=== PATIENT | female | born 1980 | race Caucasian/White ===

== ENCOUNTER 2018-10-05 18:33 | Emergency (ER) | payer SELFPAY ==
[2018-10-05 18:34] VITALS: BP 104/55; PULSE 125; RESP 16; TEMP 37.1; O2SAT 95; BMI 22.7
[2018-10-05 18:56] LABS: Mucous, Urine 0 SEEN /hpf (<or=2+)
--- NOTE | 2018-10-05 19:10 | ED.DCSUM_ITS ---
History of Present Illness Chief Complaint: Complaint Informant: Patient Onset: - - Onset of symptoms Thursday Context: Sudden Onset Timing: Intermittent Quality: Dysuria and urgency Location: Current Severity: - - Mild suprapubic discomfort and back/flank pain on the right Maximum Severity: Moderate - Worse with urination Worsened by: Urination Relieved by: Nothing Associated Symptoms: Subjective fever and chills Narrative: Patient is a 38-year-old woman status post tubal ligation who presents with dysuria and urgency that started Thursday. She has not had a bladder infection for many years. She does report subjective fever with chills. She denies nausea or vomiting. She denies cardiac or respiratory symptoms. Last normal menstrual period 3 weeks ago Prior similar symptoms: Yes Recent Illness/Hospitalization: No - Past Medical History (1) No significant past medical history Status: Acute Past Medical History - Allergies and Home Meds Allergies/Adverse Reactions: Allergies No Known Allergies Allergy (Verified 10/05/18 18:34) Primary Care Physician: NOT,DEFINED [NON-STAFF] - Past Medical History: None Surgical History: - - Bilateral tubal ligation Lives: Spouse/ Significant Other Alcohol: None Drugs: None Review of Systems General: Reports: Chills, Fever, Subjective, Sweats. Denies: Malaise, Weight loss Eyes: Denies: Visual changes - bilaterally, Blurred Vision - bilaterally, Diplopia ENT: Denies: Rhinorrhea, Sore throat Cardiovascular: Denies: Chest pain Respiratory: Denies: Dyspnea, Cough Gastrointestinal: Reports: Abdominal pain. Denies: Vomiting, Diarrhea Genitourinary: Reports: Dysuria. Denies: Hematuria, Frequency - Patient does report urgency Musculoskeletal: Reports: Back pain. Denies: Myalgias, Arthralgias, Neck pain, Swelling, Extremity Pain Neurological: Denies: Headache Hematologic: Denies: Easy bruising Allergy: Denies: Uticaria Physical Exam Vital Signs/Narrative: Vital Signs Temp Pulse Resp BP Pulse Ox 10/05/18 18:34 98.7 F 125 H 16 104/55 L 95 Inital Vital Signs reviewed: Yes General: Well nourished, Well developed, No Acute Distress Head: Normocephalic, Atraumatic Eyes: Perrl, EOMI. Negative for: Pale conjunctiva, Scleral icterus, - ENT: Moist mucous membranes, No rhinorrhea Neck: Supple, Nontender, No lymphadenopathy, No JVD, - Cardiovascular: Regular rate, Regular rhythm, No murmurs Abdomen: Soft, Nondistended, Normal bowel sounds, Tender - There is tenderness in the suprapubic region Back: Nontender, Normal Inspection, CVA tenderness - Right Extremities: Nontender, No edema Skin: Normal color, No rash Neurological: Alert, Oriented x3, Cranial nerves II-XII grossly intact, Normal Strength, Normal Sensation Psychological: Normal affect, Normal Mood Diagnostic/Tx/Re-eval Laboratory Results 10/05/18 18:51 Urine Color Yellow Urine Clarity Cloudy Urine pH 6.0 Ur Specific [place] 1.015 Urine Protein 100 H Urine Glucose (UA) Normal Urine Ketones 15 H Urine Occult Blood 250 H Urine Nitrite Positive H Urine Bilirubin 1 H Urine Urobilinogen 4 H Ur Leukocyte Esterase 500 H Urine RBC 0-5 SEEN Urine WBC 10-25 SEEN Ur Squamous Epith Cells 0-5 SEEN Urine Bacteria 2+ Urine Mucus 0 SEEN Urine Test Negative - Medical Decision Making Cystitis. There is concern for subclinical pyelonephritis. We will obtain UA. Since patient is not febrile and not vomiting she can be treated as an outpatient. When I entered the room to examine her she was drinking a beverage and appears in no distress. Patient's urine is consistent with infection. Because there is CVA tenderness will treat for pyelonephritis. She received first dose of Synthroid Floxin in the department and prescription for 7-day course. She also was prescribed Pyridium for her discomfort. ED Disposition - Plan for ED Patient: Disposition: Home or Assisted Living Diagnosis: Acute pyelonephritis Instructions: ED Kidney Infec Female Prescriptions: Ciprofloxacin HCl 500 mg PO BID #14 tab Phenazopyridine HCl [Pyridium] 200 mg PO TID #10 tab Referrals: NOT,DEFINED [NON-STAFF] - Additional Instructions: Follow-up with the doctor on your insurance card in 3-5 days.
[2018-10-05 19:13] LABS: Color, Urine Yellow (Yellow); Glucose, Dipstick Normal (Normal); Ketone-Dipstick 15 mg/dl (Negative); Leukocyte Esterase-Dipstick 500 /ul (Negative); Nitrite-Dipstick Positive (Negative); Occult Blood-Urine 250 /ul (Negative); Protein-Dipstick 100 mg/dl (Negative); Specific Gravity, Urine 1.015 (1.002-1.030); Urine Clarity Cloudy (Clear); Urine Urobilinogen 4 mg/dl (Normal)
[2018-10-05 19:20] LABS: Internal QC Validated? YES +Cl - CLEAR BKGD; Pregnancy, Urine Negative Negative; Urine Bilirubin Dipstick 1 mg/dL (Negative)
[2018-10-05 19:26] LABS: Bacteria 2+ /hpf (None Seen); Red Blood Cells-Urine 0-5 SEEN /hpf (0-5); White Blood Cells 10-25 SEEN /hpf (0-5)
[2018-10-05 19:27] LABS: Squamous Epithelial Cells - UA 0-5 SEEN /hpf (5-10)
[2018-10-05] MEDS: Phenazopyridine 95 MG Tablet 190 MG PO (20:18)
[2018-10-05] MEDS: Ciprofloxacin 500 MG Tablet PO (20:18)
[2018-10-05 20:21] VITALS: RESP 15
== END 2018-10-05 20:23 | disposition home or self-care (01) ==
PROVIDERS: Emergency Provider Emergency Medicine
DX: N10 Acute pyelonephritis (principal)
CPT/HCPCS: 81001; 81025; 87086; 87088; 87186; 99283

== ENCOUNTER 2019-07-11 19:04 | Observation (INO) | payer BC, SELFPAY ==
[2019-07-11 19:06] VITALS: BP 128/59; PULSE 100; RESP 16; TEMP 36.6; O2SAT 100; BMI 23.1
[2019-07-11 19:36] VITALS: BP 125/69; PULSE 88; RESP 16; O2SAT 100
--- NOTE | 2019-07-11 19:39 | ED.DCSUM_ITS ---
- ER Visit Summary Date of Service: 07/11/19 Chief Complaint: Anemia History of Present Illness: The patient is a 38 F who presents for anemia. The patient had outpatient testing that showed her hemoglobin was 5. She has had vaginal bleeding for the past 5 months. She was prescribed an oral contraceptive pill by her doctor who is out of town but has not started it yet. She has not had any other interventions. Denies any other associated symptoms. Physical Examination: Afebrile and vital signs unremarkable. Exam unremarkable. Test Results: Labs pending. Emergency Department Course and Treatment: Will discuss with Dr. Camp who is on-call as the patient would like to get established with a local GREEN TIRE INSPECTOR. She recently moved to the area. I am awaiting laboratory testing. Patient will likely need transfusion. Hemoglobin 4.8. Otherwise vitals unremarkable. Ultrasound pending. Hospitalist was contacted for admission and Dr. Camp will see the patient as a [employer] consultant. Treatment Plan: As above Disposition: Admission Impression: Anemia Vaginal bleeding This note was generated with [employer] dictation software. It may contain incorrect words, spelling, and punctuation that were not noted in review of the chart prior to signing ED Disposition - Plan for ED Patient: Referrals: Care Physician,No Primary [Primary Care Provider] -
--- NOTE | 2019-07-11 19:48 | US_ITS ---
STUDY: ULTRASOUND OF THE FEMALE PELVIS - COMPLETE REASON FOR EXAM: Female, 38 years old. HEAVY BLEEDING LMP: TECHNIQUE: TECHNICAL QUALITY: Adequate. COMPARISON: None. FINDINGS: The uterus is anteverted and is in a midline position. The uterus measures 8.1 x 5.6 x 5.2 cm. There is a nabothian cyst suggested that may measure up to 1.4 cm. The endometrium measures 17.7 mm in thickness, and is heterogeneous. There is mixed echogenicity within the endometrium. There is vascularity. There is centrally located echogenic endometrium and low attenuating periphery possible fluid. There is no demonstrated myometrial mass. I.U.D. - The patient does not have an I.U.D. The right ovary is visualized. The right ovary measures 4.5 x 4.0 x 2.3 cm. There is a right ovarian cyst measuring 4.2 x 3.6 x 2.0 cm. There is no visualized right adnexal mass or complex lesion. There is normal arterial and normal venous vascularity. The left ovary is visualized. The left ovary measures 4.0 x 1.8 x 1.8 cm. cm. There is no left ovarian cyst or ovarian mass. There is no visualized left adnexal mass or complex lesion. There is normal arterial and normal venous vascularity. There is no fluid in the cul-de-sac. Polycystic ovary disease: No. US/Transvaginal Non- IMPRESSION: Thickened heterogeneous endometrium with mixed echogenicity. Recommend correlation with any history of recent . Retained products could potentially have this appearance. The differential includes endometrial hyperplasia possible atypia. Recommend INSTRUMENT MAINTENANCE SUPERVISOR consult. Anechoic benign-appearing avascular right ovarian cyst. Electronically Signed: Hailey Crandall MD at 21:23 EST Tel , Service support ,
[2019-07-11 20:01] LABS: Absolute Lymphocyte Count 1.73 X10^3/uL (0.83-4.51); Absolute Neutrophil Count 3.7 X10^3/uL (2.0-7.7); Basophil# 0.04 X10^3/uL; Basophil% 0.7 % (0-1); Eosinophils% 1.6 % (0-5); Hematocrit 18.6 % (37-47); Lymphocyte # 1.73 X10^3/ul (4.0); Lymphocyte % 28.5 % (19-41); Mean Corp Hgb Conc 25.8 g/dL (32-36); Mean Corpuscular Hgb 15.7 pg (27.0-32.0); Mean Corpuscular Volume 60.8 fL (81-99); Monocyte# 0.48 X10^3/uL; Monocyte% 7.9 % (0-10); NRBC Flagged by Analyzer 0 % (0-5); Neutrophil # 3.71 X10^3/uL (2.7-7.7); POSITIVE COUNT YES; POSITIVE MORPHOLOGY YES; Platelet Count 214 K/mm3 (150-450); RBC Distribution Width CV 22.3 % (11.6-14.6); RBC Distribution Width SD 46.5 fl (35.1-43.9); Red Blood Count 3.06 M/mm3 (4.2-5.4); White Blood Count 6.1 K/mm3 (4.4-11.0)
[2019-07-11 20:13] LABS: Bacteria 0 SEEN /hpf (None Seen); Mucous, Urine 0 SEEN /hpf (<or=2+); Squamous Epithelial Cells - UA 0 SEEN /hpf (5-10); White Blood Cells 0 SEEN /hpf (0-5)
[2019-07-11 20:28] LABS: Differential Indicated SCAN CRITERIA MET
[2019-07-11 20:29] LABS: Hemoglobin 4.8 g/dL (12.0-15.0)
[2019-07-11 20:37] LABS: Anion Gap 5 (5-15); BUN 17 mg/dL (7-18); Chloride 110 mmol/L (98-107); Creatinine, Serum 0.85 mg/dL (0.55-1.02); EST Glomerular Filtration Rate 79 mL/min (>60); Est Glom Filt Rate - Afr Amer 96 mL/min (>60); Estimated Creatinine Clearance 87.27 ml/min; Glucose 91 mg/dL (74-106); Potassium 3.7 mmol/L (3.5-5.1); Sodium Level 141 mmol/L (136-145)
[2019-07-11 20:39] LABS: Internal QC Validated? YES +Cl - CLEAR BKGD; Pregnancy, Serum, hCG Quali. NEGATIVE Negative
[2019-07-11 20:43] LABS: Color, Urine Yellow (Yellow); Glucose, Dipstick Normal (Normal); Ketone-Dipstick Negative (Negative); Leukocyte Esterase-Dipstick Negative /ul (Negative); Nitrite-Dipstick Negative (Negative); Occult Blood-Urine 250 /ul (Negative); Protein-Dipstick Negative (Negative); Red Blood Cells-Urine 50-100 SEEN /hpf (0-5); Urine Bilirubin Dipstick Negative (Negative); Urine Clarity Clear (Clear); Urine Urobilinogen Normal (Normal)
[2019-07-11 20:56] LABS: Anisocytosis 2+; Hypochromasia 3+; Microcytosis 3+; Ovalocyte RARE; Platelet Estimate ADEQUATE (ADEQ); Polychromasia RARE
[2019-07-11 21:08] VITALS: PULSE 96; RESP 14; RESP 15; O2SAT 96
--- NOTE | 2019-07-11 21:27 | HP.PCM_ITS ---
Problem List (1) Vaginal bleeding Status: Chronic (2) Anemia Status: Acute History of Present Illness Date of Admission: 07/11/19 Chief Complaint: anemia, vaginal bleeding The patient is a 38 year old female patient who presents the emergency room due to symptoms of dizziness and lightheadedness. She states she has had been having persistent vaginal bleeding over the past 5 months for which she was recently started on oral contraceptive pill that she has not started to take. The patient states her bleeding is relatively slow at this point but 2 to 3 days ago she passed some large clots. hCG is negative. The patient has relocated to the [facility] from [place] and is now seeking a new BOX TRUCK WASHER to manage this vaginal bleeding situation. Hemoglobin here in the emergency room was 4.8 hematocrits 18 staying in bed. She denies chest pain shortness of breath, nausea vomiting or diarrhea. TYPE DISK QUALITY CONTROL SUPERVISOR physician Dr. Camp was consulted by ER physician, hospitalist service was called to admit the patient for transfusion and TYPE DISK QUALITY CONTROL SUPERVISOR specialist will see the patient in consult. Past Medical History Past Medical History (Chronic Problems): Chronic Problems Vaginal bleeding (Chronic) Allergies orange Allergy (Verified 07/11/19 19:06) Angioedema Home Medications: Ambulatory Orders Medication Instructions Recorded NK 07/11/19 Surgical History: - - Bilateral tubal ligation Smoking Status: Former smoker - *Family History Maternal History Items: No pertinent history Review of Systems Constitutional: Reports: Fatigue. Denies: Chills, Fever, Weight Change HEENT: Denies: Head Aches, Sinus Congestion, Sinus Drainage Cardiovascular: Reports: Light Headedness. Denies: Chest Pain, Palpitations Respiratory: Denies: Cough, Shortness of breath at rest, Sputum production Gastrointestinal: Denies: Abdominal Pain, Nausea, Vomiting Genitourinary: Denies: Dysuria Musculoskeletal: Denies: Joint Pain, Joint Tenderness Skin: Denies: Rash, Wounds Neurological: Denies: Numbness, Tingling, Focal weakness Psychiatric: Denies: Anxiety, Depression, Homicidal Ideations, Suicidal Ideations Hematologic/ Lymphatic: Denies: Easy Bruising, Easy Bleeding VTE Information - Inpt Only VTE Present on Admission: No VTE Mechan Device Prophylaxis: SCD's VTE Pharm Prophylaxis ordered?: No Patient Problems: Active and Suspected Problems Anemia (Acute) - Physical Exam Vitals/I&O's: Vital Signs Temp Pulse Resp BP Pulse Ox 97.8 F 96 15 125/69 H 96 07/11/19 19:06 07/11/19 21:08 07/11/19 21:08 07/11/19 19:36 07/11/19 21:08 Oxygen Delivery Method Room Air Weight: 148 lb Body Mass Index (BMI) 23.1 General: Alert, Oriented x3, Cooperative, - - pale HEENT: Atraumatic, Normocephalic Neck: Supple, Negative Carotid Bruits Lungs: Clear to auscultation, Normal air movement Cardiovascular: Regular rate, Normal S1, Normal S2, No murmurs, Tachycardic Abdomen: Bowel Sounds Present, Soft, Non Tender Extremities: No edema Skin: No rashes Musculoskeletal: No Tenderness to Palpation of Joints or Extremities Neurological: Neuro grossly intact Psych/Mental Status: Normal Affect, Appropriate Laboratory Results 07/11/19 19:45: WBC 6.1, RBC 3.06 L, Hgb 4.8 L*, Hct 18.6 L, MCV 60.8 L, MCH 15.7 L, MCHC 25.8 L, RDW Std Deviation 46.5 H, RDW Coeff of Felipa 22.3 H, Plt Count 214, Immature Gran % (Auto) 0.300, Neut % (Auto) 61.0, Lymph % (Auto) 28.5, [place] % (Auto) 7.9, Eos % (Auto) 1.6, Baso % (Auto) 0.7, Absolute Neuts (auto) 3.7, Absolute Lymphs (auto) 1.73, Nucleated RBC % 0, Diff Path Review May foll, Platelet Estimate ADEQUATE, Polychromasia RARE, Hypochromasia 3+, Anisocytosis 2+, Microcytosis 3+, Ovalocytes RARE 07/11/19 19:45: Sodium 141, Potassium 3.7, Chloride 110 H, Carbon Dioxide 26.0, Anion Gap 5, BUN 17, Creatinine 0.85, Estim Creat Clear Calc 87.27, Est GFR (MDRD) Af Amer 96, Est GFR (MDRD) Non-Af 79, BUN/Creatinine Ratio 20.0, Glucose 91, Calcium 9.0 07/11/19 19:45: Serum , Qual NEGATIVE 07/11/19 19:45: Blood Type Pending, Antibody Screen Pending, Crossmatch See Detail 07/11/19 20:00: Urine Color Yellow, Urine Clarity Clear, Urine pH 7.0, Ur Specific [place] 1.010, Urine Protein Negative, Urine Glucose (UA) Normal, Urine Ketones Negative, Urine Occult Blood 250 H, Urine Nitrite Negative, Urine Bilirubin Negative, Urine Urobilinogen Normal, Ur Leukocyte Esterase Negative, Urine RBC 50-100 SEEN, Urine WBC 0 SEEN, Ur Squamous Epith Cells 0 SEEN, Urine Bacteria 0 SEEN, Urine Mucus 0 SEEN Current Medications Sodium Chloride () 500 mls @ 15 mls/hr IV PRN PRN PRN Reason: Blood Transfusion Assessment/Plan All Active Problems No significant past medical history (Acute) Anemia (Acute) Chronic Problems Vaginal bleeding (Chronic) Plan 1. Severe anemia secondary to chronic vaginal bleeding?consult Dr. Camp for TYPE DISK QUALITY CONTROL SUPERVISOR evaluation of bleeding, type cross and transfuse 2 units packed red blood cells repeat H&H 1 hour posttransfusion, hold NSAIDs if taking any. Obtain reticulocyte index?total iron binding capacity?serum iron, serum ferritin prior to transfusion 2. DVT prophylaxis?SCDs as a low molecular weight heparin would be contraindicated due to anemia and active bleeding Code Visit Inpatient E&M: 02330 Init Hosp L3
[2019-07-11 21:36] VITALS: BMI 25.7
[2019-07-11 21:43] VITALS: BP 128/74; PULSE 97; RESP 16; TEMP 37.1; O2SAT 97
[2019-07-11 21:57] VITALS: BMI 25.8
[2019-07-11 22:27] LABS: Iron 10 ug/dL (50-170); Iron Binding Capacity,Total 523 ug/dL (250-450); PERCENT IRON SATURATION 1.9 % (15.0-55.0)
[2019-07-11 22:50] VITALS: BP 118/69; PULSE 88; RESP 16; TEMP 36.8; O2SAT 100
[2019-07-11 23:05] VITALS: BP 119/59; PULSE 92; RESP 16; TEMP 36.8; O2SAT 100
[2019-07-12] VITALS (8 sets, daily range): BP systolic 108–116; BP diastolic 62–72; PULSE 70–87; RESP 16; TEMP 36.5–36.8; O2SAT 97–100
--- NOTE | 2019-07-12 03:58 | NURSING ---
notified harini in lab pt's blood is complete and hh will need drawn in 1 hr
[2019-07-12] MEDS: 0.9% Saline Lock 10 ML Syringe IV (05:15)
[2019-07-12 05:18] LABS: Absolute Lymphocyte Count 1.99 X10^3/uL (0.83-4.51); Absolute Neutrophil Count 3.3 X10^3/uL (2.0-7.7); Basophil# 0.05 X10^3/uL; Basophil% 0.8 % (0-1); Eosinophil# 0.16 X10^3/uL; Eosinophils% 2.6 % (0-5); Hematocrit 26.5 % (37-47); Hemoglobin 7.7 g/dL (12.0-15.0); Immature Platelet Fraction 4.6 % (1.0-7.9); Lymphocyte # 1.99 X10^3/ul (4.0); Lymphocyte % 32.1 % (19-41); Mean Corp Hgb Conc 29.1 g/dL (32-36); Mean Corpuscular Volume 68.8 fL (81-99); Monocyte# 0.67 X10^3/uL; Monocyte% 10.8 % (0-10); NRBC Flagged by Analyzer 0.3 % (0-5); Neutrophil # 3.29 X10^3/uL (2.7-7.7); Neutrophil % 53.2 % (47-70); POSITIVE MORPHOLOGY YES; Platelet Count 173 K/mm3 (150-450); RBC Distribution Width CV 28.7 % (11.6-14.6); RBC Distribution Width SD 67.1 fl (35.1-43.9); RET-HE 17.6 pg (30-35); Red Blood Count 3.85 M/mm3 (4.2-5.4); Reticulocyte Count 0.72 % (0.5-1.5); White Blood Count 6.2 K/mm3 (4.4-11.0)
[2019-07-12 05:32] LABS: Differential Indicated SCAN CRITERIA MET
[2019-07-12 05:43] LABS: Anion Gap 3 (5-15); BUN 16 mg/dL (7-18); BUN/Creat Ratio 24.8 RATIO (10-20); Calcium,Total 8.4 mg/dL (8.5-10.1); Chloride 109 mmol/L (98-107); Creatinine, Serum 0.64 mg/dL (0.55-1.02); EST Glomerular Filtration Rate 109 mL/min (>60); Est Glom Filt Rate - Afr Amer 132 mL/min (>60); Glucose 91 mg/dL (74-106); Potassium 3.7 mmol/L (3.5-5.1); Sodium Level 139 mmol/L (136-145)
[2019-07-12 05:53] LABS: Anisocytosis 2+; Hypochromasia 3+; Microcytosis 3+; Platelet Estimate ADEQUATE (ADEQ)
[2019-07-12 05:54] LABS: Ovalocyte 1+; Schistocytes RARE
--- NOTE | 2019-07-12 06:59 | NURSING ---
pt went through four ramirez pads since admission
--- NOTE | 2019-07-12 08:47 | PCM.CONS.B ---
- Consult Date of Consult: 07/12/19 - Reason for Consult Gynecology Consultation Reason for Consultation: Heavy Vaginal Bleeding, Anemia HPI: This is a 38-year-old G3, P3 who presents to the emergency room with severe anemia and heavy vaginal bleeding. She has been seeing her SURVEY PARTY CHIEF in [place] who has attempted to start her on OCPs for heavy vaginal bleeding. She admits that she has not started these pills yet. In the emergency room her hemoglobin was 4.8 and she was admitted to the medicine service for transfusion overnight. Her hemoglobin is now in the mid sevens. She denies any dizziness or lightheadedness after her 2 units of packed red blood cells but she indicates that she was dizzy at the time she presented to the emergency room. She indicates that this bleeding has been occurring on and off for several years. More recently she has bled almost every day sometimes very heavy. She is on some iron. Medications: Iron supplements. She has a prescription for OCPs but has not started this prescription yet. Social: Patient is not currently a smoker but she is a former smoker. She is . Physical exam: In general this is a 38-year-old patient in no apparent distress. Physical exam per the medicine service was essentially normal. She indicates minimal vaginal bleeding at present. She is uncertain where she is in her cycle and indicates that she could start heavier bleeding at any time. Radiology: Ultrasound is essentially normal with a thickened endometrial lining. Suspicious for an endometrial polyp. No fibroids are present. Ovaries are slightly enlarged but otherwise are normal. Impression/Plan: Menorrhagia and chronic anemia. Uncertain etiology but suspicious for endometrial polyp. Recommended to the patient that she continue her iron supplementation and start OCPs today. If her bleeding becomes heavier she is to call our office and we will institute an Aygestin taper to prevent her from needing to return to the emergency room. Separately, we discussed treatment and plan to proceed with a D&C within the next 1 to 2 weeks. We discussed the RBA's of this procedure including the possibly of bleeding, infection, and injury to surrounding structures such as bowel and bladder and all questions were answered. Our office will contact her regarding scheduling of the surgery. From our standpoint the patient should be able to be discharged soon. Thank you for your kind consultation of this pleasant patient.
--- NOTE | 2019-07-12 08:49 | PCM.PN.HOSP ---
Patient Problems: Active and Suspected Problems Anemia (Acute) Reason for Visit: follow up severe anemia Vitals/I&O's: Vital Signs Temp Pulse Resp BP Pulse Ox 98 F 70 16 116/72 98 07/12/19 08:08 07/12/19 08:08 07/12/19 08:08 07/12/19 08:08 07/12/19 08:08 Oxygen Delivery Method Room Air Weight: 74.6 kg Body Mass Index (BMI) 25.7 Intake and Output for Last 24 Hours 07/10/19 07/11/19 07/12/19 23:59 23:59 23:59 Intake Total 0 / 0 1600 / 1600 Output Total 1500 / 1500 Balance 0 / 0 100 / 100 Laboratory Results 07/11/19 19:45: WBC 6.1, RBC 3.06 L, Hgb 4.8 L*, Hct 18.6 L, MCV 60.8 L, MCH 15.7 L, MCHC 25.8 L, RDW Std Deviation 46.5 H, RDW Coeff of Felipa 22.3 H, Plt Count 214, Immature Gran % (Auto) 0.300, Neut % (Auto) 61.0, Lymph % (Auto) 28.5, [place] % (Auto) 7.9, Eos % (Auto) 1.6, Baso % (Auto) 0.7, Absolute Neuts (auto) 3.7, Absolute Lymphs (auto) 1.73, Nucleated RBC % 0, Diff Path Review May foll, Platelet Estimate ADEQUATE, Polychromasia RARE, Hypochromasia 3+, Anisocytosis 2+, Microcytosis 3+, Ovalocytes RARE 07/11/19 19:45: Sodium 141, Potassium 3.7, Chloride 110 H, Carbon Dioxide 26.0, Anion Gap 5, BUN 17, Creatinine 0.85, Estim Creat Clear Calc 87.27, Est GFR (MDRD) Af Amer 96, Est GFR (MDRD) Non-Af 79, BUN/Creatinine Ratio 20.0, Glucose 91, Calcium 9.0 07/11/19 19:45: Serum , Qual NEGATIVE 07/11/19 19:45: Blood Type A POSITIVE, Antibody Screen NEGATIVE, Crossmatch See Detail 07/11/19 20:00: Urine Color Yellow, Urine Clarity Clear, Urine pH 7.0, Ur Specific [place] 1.010, Urine Protein Negative, Urine Glucose (UA) Normal, Urine Ketones Negative, Urine Occult Blood 250 H, Urine Nitrite Negative, Urine Bilirubin Negative, Urine Urobilinogen Normal, Ur Leukocyte Esterase Negative, Urine RBC 50-100 SEEN, Urine WBC 0 SEEN, Ur Squamous Epith Cells 0 SEEN, Urine Bacteria 0 SEEN, Urine Mucus 0 SEEN 07/11/19 21:50: Iron 10 L, TIBC 523 H, Iron Saturation 1.9 L 07/12/19 05:06: WBC 6.2, RBC 3.85 L, Hgb 7.7 L, Hct 26.5 L, MCV 68.8 L D, MCH 20.0 L, MCHC 29.1 L, RDW Std Deviation 67.1 H, RDW Coeff of Felipa 28.7 H, Plt Count 173, Immature Gran % (Auto) 0.500, Neut % (Auto) 53.2, Lymph % (Auto) 32.1, [place] % (Auto) 10.8 H, Eos % (Auto) 2.6, Baso % (Auto) 0.8, Absolute Neuts (auto) 3.3, Absolute Lymphs (auto) 1.99, Nucleated RBC % 0.3, Platelet Estimate ADEQUATE, Immature Plt Fraction 4.6, Hypochromasia 3+, Anisocytosis 2+, Microcytosis 3+, Ovalocytes 1+, Schistocytes RARE, Retic Count 0.72, Immature Retic Fraction 7.10, Retic Hgb Equivalent 17.6 L 07/12/19 05:06: Sodium 139, Potassium 3.7, Chloride 109 H, Carbon Dioxide 27.0, Anion Gap 3 L, BUN 16, Creatinine 0.64, Estim Creat Clear Calc 115.90, Est GFR (MDRD) Af Amer 132, Est GFR (MDRD) Non-Af 109, BUN/Creatinine Ratio 24.8 H, Glucose 91, Calcium 8.4 L 07/12/19 : Hgb Cancelled, Hct Cancelled, Immature Plt Fraction Cancelled, Retic Count Cancelled, Immature Retic Fraction Cancelled, Retic Hgb Equivalent Cancelled Current Medications Sodium Chloride () 500 mls @ 15 mls/hr IV PRN PRN PRN Reason: Blood Transfusion Sodium Chloride () 500 mls @ 15 mls/hr IV PRN PRN PRN Reason: Blood Transfusion Sodium Chloride () 10 - 40 ml IV UD PRN PRN Reason: SALINE FLUSH Last Admin: 07/12/19 05:15 Dose: 30 ml Documented by: STROKE Vital Signs/Narrative: Vital Signs Temp Pulse Resp BP Pulse Ox 07/12/19 08:08 98 F 70 16 116/72 98 07/12/19 07:35 97 07/12/19 05:12 97.8 F 71 16 109/69 99 Medical Necessity - Tobacco Use Smoking Status: Former smoker Tobacco Use: Cigarettes Assessment/Plan All Active Problems No significant past medical history (Acute) Anemia (Acute)
--- NOTE | 2019-07-12 09:07 | DCINST_ITS ---
- Discharge Diagnoses Current Active Problems: Current Active and Chronic Problems Vaginal bleeding (Chronic) Anemia (Acute) You will use the following diet at home:: Regular Your food should be the consistency of: Regular Discharge Activity: Return to Normal Activity Allergies/Adverse Reactions: Allergies orange Allergy (Verified 07/11/19 19:06) Angioedema Medications to take at Discharge Docusate Sodium [Colace] 100 mg PO DAILY #60 cap 07/12/19 Iron Poly/Vit C [Niferex-150] 150 mg PO DAILYCM #60 cap 07/12/19 The following prescriptions were given: Docusate Sodium [Colace] 100 mg PO DAILY #60 cap Transmission Status: Pending to [id number] Iron Poly/Vit C [Niferex-150] 150 mg PO DAILYCM #60 cap Transmission Status: Pending to [id number] Primary Care Physician: Care Physician,No Primary [Primary Care Provider] - Please follow up with your Primary Care Physician in: in 1 week Test Results: Test results from this visit will be discussed in further detail at your follow- up appointment, if applicable. Please Follow Up With: Shon Camp MD When: as scheduled Proposed Discharge Date: 07/12/19
--- NOTE | 2019-07-12 09:17 | DS.PCM_ITS ---
Discharge Date and Diagnosis - Problem List Patient Problems: Active and Suspected Problems Anemia (Acute) Date of Admission: 07/11/19 Date of Discharge: 07/12/19 - Primary Discharge Diagnosis Active and Suspected Problems Anemia (Acute) - Secondary Discharge Diagnosis Chronic Problems Vaginal bleeding (Chronic) Hospital Course and Treatment Summary of Care Provided: The patient is a 38 year old F history of menometrorrhagia lightheadedness. Patient was found to have hemoglobin of 4.8. Admitted to regular nursing floor transfused with PRBC. Hemoglobin came up to 7.7 following the transfusion. Patient was also seen in consultation by [facility] [employer] REPRESENTATIVE Dr. Camp plan is for patient to undergo outpatient D&C on 07/18/2019. Prescription was also written for Niferex on discharge. Patient Problems: Active and Suspected Problems Anemia (Acute) Objective: GENERAL: cooperative HEENT: Atraumatic; EYES; Anicteric, Normal Conjunctiva NECK; supple, normal thyroid, RESPIRATORY: Diminished to auscultation CARDIOVASCULAR: Regular S1 S2, SKIN: No Rash PSYCH; Flat affect - Physical Exam Vitals/I&O's: Vital Signs Temp Pulse Resp BP Pulse Ox 98 F 70 16 116/72 98 07/12/19 08:08 07/12/19 08:08 07/12/19 08:08 07/12/19 08:08 07/12/19 08:08 Oxygen Delivery Method Room Air Weight: 74.6 kg Body Mass Index (BMI) 25.7 Intake and Output for Last 24 Hours 07/10/19 07/11/19 07/12/19 23:59 23:59 23:59 Intake Total 0 / 0 1600 / 1600 Output Total 1500 / 1500 Balance 0 / 0 100 / 100 Laboratory Results 07/11/19 19:45: WBC 6.1, RBC 3.06 L, Hgb 4.8 L*, Hct 18.6 L, MCV 60.8 L, MCH 15.7 L, MCHC 25.8 L, RDW Std Deviation 46.5 H, RDW Coeff of Felipa 22.3 H, Plt Count 214, Immature Gran % (Auto) 0.300, Neut % (Auto) 61.0, Lymph % (Auto) 28.5, [place] % (Auto) 7.9, Eos % (Auto) 1.6, Baso % (Auto) 0.7, Absolute Neuts (auto) 3.7, Absolute Lymphs (auto) 1.73, Nucleated RBC % 0, Diff Path Review May , Platelet Estimate ADEQUATE, Polychromasia RARE, Hypochromasia 3+, Anisocytosis 2+, Microcytosis 3+, Ovalocytes RARE 07/11/19 19:45: Sodium 141, Potassium 3.7, Chloride 110 H, Carbon Dioxide 26.0, Anion Gap 5, BUN 17, Creatinine 0.85, Estim Creat Clear Calc 87.27, Est GFR (MDRD) Af Amer 96, Est GFR (MDRD) Non-Af 79, BUN/Creatinine Ratio 20.0, Glucose 91, Calcium 9.0 07/11/19 19:45: Serum , Qual NEGATIVE 07/11/19 19:45: Blood Type A POSITIVE, Antibody Screen NEGATIVE, Crossmatch See Detail 07/11/19 20:00: Urine Color Yellow, Urine Clarity Clear, Urine pH 7.0, Ur S pecific [place] 1.010, Urine Protein Negative, Urine Glucose (UA) Normal, Urine Ketones Negative, Urine Occult Blood 250 H, Urine Nitrite Negative, Urine Bilirubin Negative, Urine Urobilinogen Normal, Ur Leukocyte Esterase Negative, Urine RBC 50-100 SEEN, Urine WBC 0 SEEN, Ur Squamous Epith Cells 0 SEEN, Urine Bacteria 0 SEEN, Urine Mucus 0 SEEN 07/11/19 21:50: Iron 10 L, TIBC 523 H, Iron Saturation 1.9 L 07/12/19 05:06: WBC 6.2, RBC 3.85 L, Hgb 7.7 L, Hct 26.5 L, MCV 68.8 L D, MCH 20.0 L, MCHC 29.1 L, RDW Std Deviation 67.1 H, RDW Coeff of Felipa 28.7 H, Plt Count 173, Immature Gran % (Auto) 0.500, Neut % (Auto) 53.2, Lymph % (Auto) 32.1, [place] % (Auto) 10.8 H, Eos % (Auto) 2.6, Baso % (Auto) 0.8, Absolute Neuts (auto) 3.3, Absolute Lymphs (auto) 1.99, Nucleated RBC % 0.3, Platelet Estimate ADEQUATE, Immature Plt Fraction 4.6, Hypochromasia 3+, Anisocytosis 2+, Micr ocytosis 3+, Ovalocytes 1+, Schistocytes RARE, Retic Count 0.72, Immature Retic Fraction 7.10, Retic Hgb Equivalent 17.6 L 07/12/19 05:06: Sodium 139, Potassium 3.7, Chloride 109 H, Carbon Dioxide 27.0, Anion Gap 3 L, BUN 16, Creatinine 0.64, Estim Creat Clear Calc 115.90, Est GFR (MDRD) Af Amer 132, Est GFR (MDRD) Non-Af 109, BUN/Creatinine Ratio 24.8 H, Glucose 91, Calcium 8.4 L 07/12/19 : Hgb Cancelled, Hct Cancelled, Immature Plt Fraction Cancelled, Retic Count Cancelled, Immature Retic Fraction Cancelled, Retic Hgb Equivalent Cancelled Current Medications Sodium Chloride () 500 mls @ 15 mls/hr IV PRN PRN PRN Reason: Blood Transfusion Sodium Chloride () 500 mls @ 15 mls/hr IV PRN PRN PRN Reason: Blood Transfusion Sodium Chloride () 10 - 40 ml IV UD PRN PRN Reason: SALINE FLUSH Last Admin: 07/12/19 05:15 Dose: 30 ml Documented by: Discharge Diet: No Restrictions Discharge Activity: Return to Normal Activity Home Medications: Medications to take at Discharge Docusate Sodium [Colace] 100 mg PO DAILY #60 cap 07/12/19 Iron Poly/Vit C [Niferex-150] 150 mg PO DAILYCM #60 cap 07/12/19 Following Prescrptions Were Given to Patient: Docusate Sodium [Colace] 100 mg PO DAILY #60 cap Transmission Status: Pending to [id number] Iron Poly/Vit C [Niferex-150] 150 mg PO DAILYCM #60 cap Transmission Status: Pending to [id number] Primary Care Physician: Care Physician,No Primary [Primary Care Provider] - Please follow up with your Primary Care Physician in: in 1 week Please Follow Up With: Shon Camp MD When: as scheduled Disposition: Home Minutes spent on discharge:: 35 Patient Condition:: Good Medical Necessity - Tobacco Use Smoking Status: Former smoker Tobacco Use: Cigarettes Meaningful Use Info Meaningful Use Diagnoses (Choose all that apply): None applicable Code Visit Inpatient E&M: 32177 Disch Hosp
--- NOTE | 2019-07-12 10:02 | CASEMGMT ---
RN DEX attempted to complete Face to Face assessment. Patient has discharged prior to assessment. Chart reviewed, no needs identified. Floor RN provided patient with list of PCPs to get established. Patient to follow-up with PLODDING OPERATOR as outpatient.
[2019-07-12 15:33] LABS: Pathologist Review Reviewed
== END 2019-07-12 10:00 | disposition home or self-care (01) ==
LOC: ED 19:29 → MS3 22:45
PROVIDERS: Admitting Provider Family Medicine; Emergency Provider Emergency Medicine; Visit Provider Internal Medicine
DX: D64.9 Anemia, unspecified (principal); N92.1 Excessive and frequent menstruation with irregular cycle; Z87.891 Personal history of nicotine dependence
CPT/HCPCS: 36415; 36430; 76830; 80048; 81001; 83540; 83550; 84703; 85025; 85045; 86850; 86900; 86901; 86920; 86922; 99218; 99284; P9016; A4216; G0378

== ENCOUNTER 2019-07-18 11:08 | Day surgery (SDC) | payer BC, SELFPAY ==
[2019-07-15 11:34] LABS: Internal QC Validated? YES +Cl - CLEAR BKGD; Pregnancy, Serum, hCG Quali. NEGATIVE Negative
[2019-07-15 11:44] LABS: Hematocrit 27.5 % (37-47); Hemoglobin 7.8 g/dL (12.0-15.0); Mean Corp Hgb Conc 28.4 g/dL (32-36); Mean Corpuscular Hgb 19.5 pg (27.0-32.0); Mean Corpuscular Volume 68.9 fL (81-99); POSITIVE MORPHOLOGY YES; Platelet Count 198 K/mm3 (150-450); RBC Distribution Width CV 29.2 % (11.6-14.6); RBC Distribution Width SD 67.8 fl (35.1-43.9); Red Blood Count 3.99 M/mm3 (4.2-5.4); White Blood Count 5.6 K/mm3 (4.4-11.0)
[2019-07-15 11:45] LABS: Scan Indicated on CBC? Y/N YES- FLAGS NOTED
[2019-07-15 11:48] LABS: Prothrombin Time (Protime)PT. 13.4 SECONDS (11.7-14.9)
[2019-07-15 11:49] LABS: Partial Thromboplast Time 26.6 Seconds (24.1-36.2)
--- NOTE | 2019-07-17 16:23 | PCM.HP.BLA ---
History and Physical Date of Admission: 07/18/19 Surgical History and Physical Asad Pat, a 38 year old female 3 0 0 0 3, presents for D and C and hysteroscopy on July 18, 2019 at 1:00. -- Menorrhagia, Blood Loss Anemia -- Excessive bleeding since 11/2018 which continues with light flow. Denies other concerns at this time. U/S shows possible EM polyp. MEDICATIONS HISTORY: ALLERGIES: No Known Allergies Infections - Chicken pox Illnesses - no serious past illnesses Accidents - None Hospitalizations - see surgery Review of Systems: GENERAL - fatigue SKIN - Denies skin changes EYES - Denies visual changes EARS - Denies difficulty hearing NOSE - Denies nasal congestion or bleeding MOUTH - Denies sore throat or difficulty swallowing NECK - Denies pain or swelling RESPIRATORY - Denies shortness of breath or wheezing CARDIOVASCULAR - Denies palpitations or chest pain GASTROINTESTINAL - Denies nausea, vomiting, diarrhea, constipation GENITOURINARY - Denies dysuria, frequency of urination, incontinence of urine MUSCULOSKELETAL - Denies joint or muscle pain NEUROLOGICAL - Denies localized numbness or weakness PSYCHIATRIC - Denies depression or anxiety ENDOCRINE - Denies heat or cold intolerance, weight loss or gain HEMATO-IMMUNOLOGIC - Denies excesive bleeding with cuts SOCIAL HISTORY: Alcohol Use - None Smoking - Never Diet - no special diet Lifestyle - moderate stress lifestyle and Exercise - active work Seat Belt Use - always Employer - [employer] Job Description - [place] Illicit Drug Use - None Sexual Activity - Spouse-Sig Other Name - Vincent Pat Spouse-Sig Other 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 Tubal, 2003 2. cholecystectomy, 1999 PHYSICAL EXAM BP- 126/70 Sitting, Right arm, regular cuff Weight- 167.91936 lbs Height- 67 inch BMI:26.21 CONSTITUTIONAL - NAD, well nourished, and well developed SKIN - No rash, lesions, or ulcers HEENT - Normocephalic, PERRLA, EOMI NECK - No nodes, no nuchal rigidity and thyroid normal size and texture LYMPH NODES - Palpation of lymph nodes in neck and groins within normal limits LUNGS - CTA x2 without wheezes, crackles or rales CARDIAC - Regular rate and rhythm without rubs, murmurs, or gallops ABDOMEN - Without hepatosplenomegaly, distention, masses, rebound, or guarding; normal bowel sounds; no hernias EXTREMITIES - No edema or calf tenderness NEUROLOGICAL - Cranial nerves II-XII grossly intact PSYCHIATRIC - A and O to time, place, person, mood and affect DETAILED PELVIC EXAM External Genital Vagina - non-tender without lesions Urethra/Urethral Meatus - non-tender Bladder - non-tender Vagina - vaginal kowalski are pink and moist without loss of rugae and no evidence of atropy Cervix - without cervical motion tenderness and has normal size and features without evident lesions Uterus - multiparous size 6 cm & wt 75-125 g Adnexa - clear without massess or tenderness ASSESSMENT/PLAN BY DIAGNOSIS: 1. Menorrhagia, Blood Loss Anemia Plan D and C and H/S. Received 2 units PRBC about a week ago. Discussed RBAs and all questions answered.
[2019-07-18] VITALS (7 sets, daily range): BP systolic 113–122; BP diastolic 56–78; PULSE 57–73; RESP 15–18; TEMP 36.5–36.9; O2SAT 96–100; BMI 25.8
[2019-07-18] MEDS: Lactated Ringers 1,000 ML 100 ML IV (07:00)
--- NOTE | 2019-07-18 12:33 | OP.PCM_ITS ---
Report of Operation Date of Procedure: 07/18/19 Pre-Operative Diagnosis: Menorrhagia, Blood Loss Anemia Post-Operative Diagnosis: Menorrhagia, Blood Loss Anemia, Endometrial Polyps Surgery/Procedure Performed:: Diagnostic Hysteroscopy, Dilation and Curettage Description of Surgical Findings:: 10 cm endometrial cavity with multiple 2-3 cm endometrial polyps removed with copious endometrial curettings. Cervix protrudes to within 3 cm of the in troitus which would make laparoscopic-assisted vaginal hysterectomy possibly feasible if this were necessary. Type of Anesthesia:: MAC Anesthesiologist: Leo Turner Specimen's removed: Endometrial curettings Estimated Blood Loss (mL): Minimal Fluids Replaced: Crystalloid Description of Procedure: Surgeon: Shon Camp MD, FACOG Indications: This is a 38 year old patient who has the above diagnosis. The patient has been counseled regarding the risk and indications of this procedure including the possibility of bleeding, infection, and injury to surrounding structures such as bowel bladder. All questions were answered and we consider the patient well-informed. Procedure: The patient was taken to the operating room where after induction of anesthesia, she was placed in the dorsolithotomy position and prepped and draped in the usual sterile fashion. The bladder was drained of approximately 100 cc of clear yellow urine with a catheter. Anterior cervix was grasped with the tenaculum and dilated to about 4-5 mm. A 3 mm hysteroscope was placed in the uterus of the above findings were noted. Cervix was dilated to about 7-8 mm and uterus was gently curetted removing all contents. Hysteroscope was reinserted and all material was noted to be removed. In the course of the procedure approximately 100 cc of saline distending media was used and virtually all of this was recovered. Patient tolerated procedure well was taken to recovery room in satisfactory condition sponge instrument and needle counts were all reportedly correct. Estimated blood loss for the case was minimal. Specimens to pathology was endometrial curettings Complications: None Grafts/Implants Used: None - Complications None - Admit VTE Documentation VTE Present on Admission: Yes VTE Mechan Device Prophylaxis: SCD's
--- NOTE | 2019-07-18 12:37 | PCM.DC.D&C ---
Discharge Diet: No Restrictions Discharge Activity: Return to Normal Activity, May Shower, May Take a Tub Bath May resume sexual activity in: 2 weeks Call your doctor if you observe: Fever of 101 or Higher, Inability to urinate, Inability to have a bowel movement, Using more than one pad per hour Allergies/Adverse Reactions: Allergies orange Allergy (Verified 07/18/19 11:31) Angioedema Medications to take at Discharge Iron Poly/Vit C [Niferex-150] 150 mg PO DAILYCM #60 cap 07/12/19 Levonorgestrel-Ethin Estradiol [Levonor-Eth Estrad 0.15-0.03] 1 ea PO DAILY 07/15/19 Oxycodone [Oxyir] 5 mg PO Q6H PRN PRN 3 Days #5 tablet 07/18/19 The following prescriptions were given: Oxycodone [Oxyir] 5 mg PO Q6H PRN PRN 3 Days #5 tablet PRN Reason: Pain Score 6-10/10 Transmission Status: Received by [facility]/pharmacy #[id number] Primary Care Physician: Care Physician,No Primary [Primary Care Provider] - Test Results: Test results from this visit will be discussed in further detail at your follow-up appointment, if applicable. Please Follow Up With: Shon Camp MD When: 2 to 3 weeks
--- NOTE | 2019-07-18 12:40 | EMB_PTH ---
PATIENT: CRISTINA SHAH [place] [facility] [id number] AGE/SX: 38/F ROOM: RE07/18/[address]: Dr. Shon Camp MD : 1980 BED: DIS: 07/18/2019 SPEC #: [id number] RECD: 07/18/19 13:21 STATUS: ROGELIO LALO #: [id number] KRISTIN: 07/18/19 12:[address]: Shon Camp DEPT: SURGICAL PATHOLOGY RECD BY: Dashawn Romero ENTERED: 07/18/19 13:42 SP TYPE: ENDOM BX/C ERLINDA DR: No Primary Care Phys Tissues: Endometrium, NOS Procedures: Surgery Specimen Level IV HEADER OPERATION: Hysteroscopy, D & C PRE-OP DIAGNOSIS: Menorrhagia, blood loss anemia TISSUE SUBMITTED: Endometrial curettings MICROSCOPIC DIAGNOSIS Endometrium, curettings: Polypoid fragments of secretory endometrium with benign stromal hyperplasia and stromal and glandular breakdown. See comment. AM:nathen 07/19/19 COMMENT The benign stromal hyperplasia may be secondary to exogenous hormonal therapy. Clinical correlation is suggested. MICROSCOPIC DESCRIPTION Slides are reviewed. GROSS DESCRIPTION Received in fixative is one container labeled with the patient's name and designated endometrial curettings. The specimen consists of multiple fragments of hemorrhagic soft tissue mixed with cox polypoid tissue that in aggregate measure 7.5 x 3 x 1 cm. The entire specimen is submitted in nine cassettes. / SJ:nathen 07/18/19 TC:5 CPT: 11334
[2019-07-18] MEDS: Cefazolin 1 GM/50 ML BAG IV (12:48)
[2019-07-18] MEDS: oxyCODONE 5 MG Tablet PO (13:44)
== END 2019-07-18 14:21 | disposition home or self-care (01) ==
LOC: SDC 11:09 → AC 11:14
PROVIDERS: Referring Provider Obstetrics & Gynecology; Visit Provider Obstetrics & Gynecology
PROC: 0UDB8ZZ Extraction of Endometrium, Via Natural or Artificial Opening Endoscopic (ICD-10-PCS; CPT 58558; principal; 2019-07-18 12:30)
DX: N85.01 Benign endometrial hyperplasia (principal); D50.0 Iron deficiency anemia secondary to blood loss (chronic); Z87.891 Personal history of nicotine dependence
CPT/HCPCS: 58558; 36415; 84703; 85027; 85610; 85730; 86850; 86900; 86901; 88305; J7120

== ENCOUNTER → 2020-09-05 | Outpatient (CLI) | payer BC, SELFPAY ==
[2019-07-18 11:32] VITALS: BMI 25.8
--- NOTE | 2020-09-05 | EMB_PTH ---
PATIENT: CRISTINA SHAH LOC: [facility] U#:[id number] AGE/SX: 39/F ROOM: RE09/05/[address]: Dr. Shon Camp MD : 1980 BED: DIS: 09/05/2020 SPEC #: [id number] RECD: 09/05/20 15:02 STATUS: ROGELIO REQ #: [id number] KRISTIN: 09/05/20 00:[address]: Shon Camp DEPT: SURGICAL PATHOLOGY RECD BY: Meek Pearl ENTERED: 09/06/20 07:30 SP TYPE: ENDOM BX/C ERLINDA DR: No Primary Care Phys Tissues: Endometrium, NOS Procedures: Surgery Specimen Level IV HEADER OPERATION: Endometrial biopsy PRE-OP DIAGNOSIS: Irregular menses TISSUE SUBMITTED: Endometrial biopsy MICROSCOPIC DIAGNOSIS Endometrial biopsy: Disordered proliferative endometrium. SJ:nathen 09/07/2020 MICROSCOPIC DESCRIPTION Slides are reviewed. GROSS DESCRIPTION Received in fixative is one container labeled with the patient's name and designated EM biopsy. The specimen consists of multiple fragments of cox hemorrhagic soft tissue that in aggregate measure 3 x 2.5 x 0.3 cm. The specimen is totally submitted in one cassette. / SJ:nathen 09/06/20 TC:5 CPT: 52909
[2020-09-12 12:53] LABS: HPV Reflexed? NOT INDICATED
== END | disposition home or self-care (01) ==
LOC: LABSPEC 13:08
PROVIDERS: Visit Provider Obstetrics & Gynecology
DX: N92.6 Irregular menstruation, unspecified (principal); Z12.4 Encounter for screening for malignant neoplasm of cervix
CPT/HCPCS: 88175; 88305; G0145

== ENCOUNTER → 2020-09-11 13:06 | Outpatient (CLI) | payer BC, SELFPAY ==
[2019-07-18 11:32] VITALS: BMI 25.8
[2020-09-11 13:46] LABS: Hematocrit 27.6 % (37-47)
== END ==
PROVIDERS: Visit Provider Obstetrics & Gynecology
DX: D50.0 Iron deficiency anemia secondary to blood loss (chronic) (principal)
CPT/HCPCS: 85014; 85018

== ENCOUNTER 2020-09-21 08:08 | Day surgery (SDC) | payer BC, SELFPAY ==
[2019-07-18 11:32] VITALS: BMI 25.8
[2020-09-17 15:14] LABS: Hematocrit 28.7 % (37-47); Hemoglobin 8.1 g/dL (12.0-15.0); Mean Corp Hgb Conc 28.2 g/dL (32-36); Mean Corpuscular Hgb 21.5 pg (27.0-32.0); Mean Corpuscular Volume 76.1 fL (81-99); Mean Platelet Vol. 10.8 fl (6.2-12.0); Platelet Count 213 K/mm3 (150-450); RBC Distribution Width CV 18.7 % (11.6-14.6); RBC Distribution Width SD 51.2 fl (35.1-43.9); Red Blood Count 3.77 M/mm3 (4.2-5.4); White Blood Count 6.8 K/mm3 (4.4-11.0)
[2020-09-17 15:24] LABS: Prothrombin Time (Protime)PT. 12.8 SECONDS (11.7-14.9)
[2020-09-17 15:25] LABS: Partial Thromboplast Time 24.5 Seconds (24.1-36.2)
[2020-09-17 15:39] LABS: Creatinine, Serum 0.77 mg/dL (0.55-1.02); EST Glomerular Filtration Rate 89 mL/min (>60); Est Glom Filt Rate - Afr Amer 107 mL/min (>60); Magnesium 2.3 mg/dL (1.6-2.6)
[2020-09-17 15:48] LABS: Internal QC Validated? YES +Cl - CLEAR BKGD; Pregnancy, Serum, hCG Quali. NEGATIVE Negative
--- NOTE | 2020-09-20 16:57 | PCM.HP.BLA ---
History and Physical Date of Admission: 09/21/20 Surgical History and Physical Asad Pat, a 40 year old female 3 0 0 0 3, presents for RAVH/BS on September 21, 2020 at 9:30. -- Recurrent Menorrhagia and Anemia -- Asad c/o irregular bleeding. Has had issues with this before. Had hysteroscoy, D, polypecotomy in 2019. Bleeding seem to improve for short time but soon returned to being irregular and heavy. Most recent issue is that she started her cycle 07-24-20 and has not stopped bleeding. At times she needs to wear both pad and tampon changing the tampon every hour. Will occ have a gush of blood. Is tired most days. Taking iron supplement. Severity is intolerable; Associated signs and symptoms are tired. Additional comments are: cannot tolerate this much longer. Additional comments are: had D and C with copious polyps removed a year ago. Pre-op hgb is 8.1. MEDICATIONS HISTORY: Current medications prescribed by our practice are: 1. ferrous sulfate 325 mg (65 mg iron) tablet, One pill by mouth three times a day ALLERGIES: No Known Allergies Infections - Chicken pox Illnesses - no serious past illnesses Accidents - None Hospitalizations - see surgery Review of Systems: GENERAL - Denies fever, or chills SKIN - Denies skin changes EYES - wears eye glasses EARS - Denies difficulty hearing NOSE - Denies nasal congestion or bleeding MOUTH - Denies sore throat or difficulty swallowing NECK - Denies pain or swelling RESPIRATORY - Denies shortness of breath or wheezing CARDIOVASCULAR - Denies palpitations or chest pain GASTROINTESTINAL - Denies nausea, vomiting, diarrhea, constipation GENITOURINARY - Denies dysuria, frequency of urination, incontinence of urine MUSCULOSKELETAL - Denies joint or muscle pain NEUROLOGICAL - Denies localized numbness or weakness PSYCHIATRIC - Denies depression or anxiety ENDOCRINE - Denies heat or cold intolerance, weight loss or gain HEMATO-IMMUNOLOGIC - Denies excesive bleeding with cuts SOCIAL HISTORY: Alcohol Use - occasionally and wine Smoking - Never Diet - no special diet Lifestyle - moderate stress lifestyle and Exercise - active work Seat Belt Use - always 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[place], 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 Tubal, 2003 2. 07/18/2019 dx hysteroscopy, D and C ; Shon Camp M.D. 3. cholecystectomy, 1999 PHYSICAL EXAM BP- 138/92 Sitting, Right arm, regular cuff Weight- 193.03175 lbs Height- 67 inch BMI:30.29 CONSTITUTIONAL - NAD, well nourished, and well developed SKIN - No rash, lesions, or ulcers HEENT - Normocephalic, PERRLA, EOMI NECK - No nodes, no nuchal rigidity and thyroid normal size and texture LYMPH NODES - Palpation of lymph nodes in neck and groins within normal limits LUNGS - CTA x2 without wheezes, crackles or rales CARDIAC - Regular rate and rhythm without rubs, murmurs, or gallops ABDOMEN - Without hepatosplenomegaly, distention, masses, rebound, or guarding; normal bowel sounds; no hernias EXTREMITIES - No edema or calf tenderness NEUROLOGICAL - Cranial nerves II-XII grossly intact PSYCHIATRIC - A and O to time, place, person, mood and affect External Genitial Vagina - non-tender without lesions Urethra/Urethral Meatus - non-tender Bladder - non-tender Vagina - vaginal kowalski are pink and moist without loss of rugae and no evidence of atropy Cervix - without cervical motion tenderness and has normal size and features without evident lesions Uterus - enlarged uterus 8 wks, wt 125-150 g Adnexa - clear without massess or tenderness ASSESSMENT/PLAN: 1. Menorrhagia, Blood Loss Anemia Recurrent after D and C about a year ago. Likely due to recurrent EM polyps. EMBx ok. Continue supplemental iron. Cannot take this heavy bleeding any longer and desiires definitive treatment. Declines medical management and desires we proceed with RAVH/BS. Discussed RBAs and all questions answered.
[2020-09-21] VITALS (10 sets, daily range): BP systolic 110–124; BP diastolic 66–85; PULSE 58–88; RESP 16; TEMP 36.3–37.3; O2SAT 95–100; BMI 30.3
[2020-09-21] MEDS: Lactated Ringers 1,000 ML 40 ML IV ×2 (09:06→12:51)
[2020-09-21] MEDS: Acetaminophen 500 MG Tablet 1000 MG PO (09:07)
[2020-09-21] MEDS: Gabapentin 600 MG Tablet PO (09:07)
--- NOTE | 2020-09-21 09:30 | HYST_PTH ---
PATIENT: CRISTINA SHAH LOC: [facility] – [place] U#:[id number] AGE/SX: 40/F ROOM: RE09/21/[address]: Dr. Shon Camp MD : 1980 BED: DIS: 09/21/2020 SPEC #: [id number] RECD: 09/21/20 12:37 STATUS: ROGELIO REChilo #: [id number] KRISTIN: 09/21/20 09:[address]: Shon Camp DEPT: SURGICAL PATHOLOGY RECD BY: Sheila Charles ENTERED: 09/21/20 13:11 SP TYPE: HYSTERECT OTHR DR: No Primary Care Phys Tissues: Uterus, NOS Procedures: Surgery Specimen Level V HEADER OPERATION: ERAS, laparoscopic robotic assisted vaginal hysterectomy, bilateral salpingectomy PRE-OP DIAGNOSIS: TISSUE SUBMITTED: Uterus, cervix, bilateral fallopian tubes MICROSCOPIC DIAGNOSIS Uterus, hysterectomy: Cervix - nabothian cysts and mild chronic inflammation. Endometrium - proliferative endometrium with focal glandular and stromal breakdown. Myometrium - no pathologic change. Right fallopian tube - no pathologic change. Left fallopian tube - endometriosis and benign paratubal cyst. AM:nathen 09/24/20 MICROSCOPIC DESCRIPTION Slides are reviewed. GROSS DESCRIPTION Received in fixative is one container labeled with the patient's name and designated uterus, cervix, bilateral fallopian tubes. The specimen consists of a hysterectomy specimen consisting of uterus with cervix and attached bilateral fallopian tubes. The uterus with cervix weighs 109 gm and measures 9 x 6 x 4.5 cm. The serosal surface is cox, glistening. The ectocervical mucosa is unremarkable. The external os is oval in contour. The endocervical canal measures 3 cm in length and the endocervical mucosa is cox, glistening and unremarkable. Sections of the cervix reveal multiple cysts filled with mucoid material. The triangular endometrial cavity measures 5 cm in length and up to 3 cm in width. The endometrium is cox, glistening without any mass lesion and measures up to 0.3 cm in thickness. Sections of the uterine wall do not reveal any mass lesion and it measures up to 2 cm in thickness. The right fallopian tube measures 5 cm in length and 0.5 cm in diameter. The fimbrial end is identified. The proximal portion of the fallopian tube is partially occluded and consistent with previous tubal ligation. Sections reveal unremarkable cut surfaces. The left fallopian tube measures 7.5 cm in length and up to 1.5 cm in diameter. The middle portion is narrow consistent with previous tubal occlusion. The proximal dilated portion of the fallopian tube is filled with bloody fluid. A paratubal cyst is also noted measuring 1 cm in greatest dimension. Tin Plater sections are submitted in nine cassettes as follows: 1 - anterior cervix, 2 - posterior cervix, 3 & 4 - anterior uterine wall, 5 & 6 - posterior uterine wall, 7 - right fallopian tube, 8 - left fallopian tube, 9 - left fallopian tube with paratubal cyst. / CANDY:nathen 09/21/20 TC:5 CPT: 23878
[2020-09-21] MEDS: Cefazolin 2 GM in 0.9% Normal Saline 100 ML IV (09:46)
[2020-09-21 09:56] LABS: Bedside Glucose 108 mg/dL (70-110)
[2020-09-21] MEDS: Ropivacaine 0.5% 30 ML Vial (10:07)
--- NOTE | 2020-09-21 11:47 | OP.PCM_ITS ---
Report of Operation Date of Procedure: 09/21/20 Pre-Operative Diagnosis: Menorrhagia, Blood Loss Anemia Post-Operative Diagnosis: Menorrhagia, Blood Loss Anemia Surgery/Procedure Performed:: Robotic Assisted Vaginal Hysterectomy and Bilateral Salpingectomy Description of Surgical Findings:: 10 cm uterus with normal-appearing fallopian tubes and ovaries with evidence of prior bilateral tubal occlusion. repair department supervisor: Ramírez Toledo Type of Anesthesia:: General - Endotracheal Anesthesiologist: Betsey Siddiqui Specimen's removed: Uterus and bilateral fallopian tubes Drains: Contreras to straight drain Estimated Blood Loss (mL): Minimal Fluids Replaced: Crystalloid Description of Procedure: Surgeon: Shon Camp MD, FACOG Indication: This is a 40 year old patient who has been having problems with extremely heavy bleeding and anemia. Conservative measures have not been helpful. The patient has been counseled regarding the risks, benefits and alternatives of this procedure including the possibility of bleeding, infection, and injury to surrounding structures such as bowel bladder and all questions were answered. She understands that if BSO is needed that she will need to be on HRT for an indefinite period of time. Procedure: Pt taken to the operating room where, after induction of general anesthesia, the patient was prepped and draped in the usual sterile fashion and placed on a non-slip Huggy-u-vac device. Trendelenburg test was satisfactory. Bladder was drained of urine with a Contreras catheter which was left in place. Anterior cervix grasped and cervix was dilated to about 3-4 mm. Uterus sounded to 10 cms. 0-Vicryl suture was placed at the 3:00 and 9:00 position of the cervix. A mall [employer] Uterine Manipulator was then placed in the uterus and attention was turned to the laparoscopic portion of the procedure. Ropivocaine 0.5% was injected approximately 2-3 cm superior to the umbilicus and an 8 mm robotic camera port was introduced directly with intraperitoneal placement confirmed with CO2 insufflation. 8 mm robotic side ports were introduced under direct visualization approximately 11 cm lateral and 2 cm inferior to the umbilical port. A 5 mm left upper quadrant port was introduced and airseal insufflation with CO2 was started. The above findings were noted. Robot was docked without difficulty and attention turned to the robotic portion of the procedure. Approximately 30 cc of Ropivicaine was used. Bilateral mesosalpinx were ligated with 35 sahni bipolar coagulation to the level of the round ligament. The posterior aspect of the cervix was identified and then opened for about 1 cm using 25 watt monopolar cautery. Bladder flap was opened and divided to the level of the round ligaments using monopolar cautery. Progressive bites were then ligated on each side of the cervix with 35 sahni bipolar cautery to the uterine arteries. The anterior vaginal mucosa was entered and cervix circumscribed with monopolar cautery. Uterus and attached tubes were removed through the vagina. Vaginal cuff was closed first with 0- Vicryl Ciro stitches placed at each angle followed by closure of the mid-cuff with 0-Monocryl V-lock suture in two layers. Pelvis was copiously irrigated with saline and the right ureter was noted to peristalse. Robot was undocked and trocars were removed with as much gas as possible. Incisions were closed with 4-0 Monocryl subcuticular sutures and incisions covered with steri-strips. The patient tolerated the procedure well and was taken to the recovery room in satisfactory condition. Sponge, instruments and needle counts were all correct. There were no apparent complications of the surgery. Ancef 2 gms IV was given prior to the procedure. Estimated Blood Loss: Minimal Specimen to Pathology: Uterus and bilateral fallopian tubes Grafts/Implants Used: None - Complications None - Admit VTE Documentation VTE Present on Admission: Yes VTE Mechan Device Prophylaxis: SCD's
--- NOTE | 2020-09-21 11:51 | PCM.DC.VHY ---
Discharge Diet: No Restrictions Discharge Activity: Return to Normal Activity, May Not Drive - while taking narcotic pain medications., May Shower, May Take a Tub Bath May resume sexual activity in: 6-8 weeks Additional Activity Instructions:: Nothing in the vagina for 6 weeks please; no lifting more than 20-25 lbs for 6 weeks. Use Ibuprophen 800 mg orally every 8 hours as needed for pain. Can also add Tylenol 1000 mg every 8 hours if needed for pain. If Ibuprophen and Tylenol are not effective then use the Oxycodone but keep in mind it can cause serious constipation issues. Drink lots of water. Call if bleeding more than a pad per hour. Use the colace as constipation is a big issue after this type of surgery. Steps and walking are OK. Activity is encouraged but do not over do it !! Call your doctor if your incision/area has: Continuous Slow Oozing, Sudden Increased Bleeding, Increased Pain/ Swelling, Increased Redness, Foul Smelling Discharge Call your doctor if you observe: Fever of 101 or Higher, Inability to urinate, Inability to have a bowel movement, Using more than one pad per hour Allergies/Adverse Reactions: Allergies orange Allergy (Verified 09/21/20 09:01) Angioedema Medications to take at Discharge Iron Poly/Vit C [Niferex-150] 150 mg PO DAILYCM #60 cap 07/12/19 Docusate Sodium [Colace] 100 mg PO BID #60 capsule 09/21/20 Oxycodone [Oxyir] 5 mg PO Q6H PRN PRN 7 Days #10 tablet 09/21/20 The following prescriptions were given: Docusate Sodium [Colace] 100 mg PO BID #60 capsule Transmission Status: Pending to [id number] Oxycodone [Oxyir] 5 mg PO Q6H PRN PRN 7 Days #10 tablet PRN Reason: Pain Score 6-10 Transmission Status: Received by [id number] Orders to be completed after discharge: CBC-Complete Blood Cnt No Diff Time Frame: 09/14/20, Facility: [facility], Location: Laboratory Partial Thromboplast Time Time Frame: 09/14/20, Facility: [facility], Location: Laboratory Prothrombin Time w/INR Time Frame: 09/14/20, Facility: [facility], Location: Laboratory Primary Care Physician: Care Physician,No Primary [Primary Care Provider] - Test Results: Test results from this visit will be discussed in further detail at your follow-up appointment, if applicable. Please Follow Up With: Shon Camp MD When: 2-3 weeks
[2020-09-21] MEDS: Ondansetron 4 MG/2 ML Vial IV (12:31)
[2020-09-21] MEDS: oxyCODONE 5 MG Tablet PO (14:30)
== END 2020-09-21 15:51 | disposition home or self-care (01) ==
LOC: SDC 08:09 → AC 08:09
PROVIDERS: Anesthesiology; Referring Provider Obstetrics & Gynecology; Visit Provider Obstetrics & Gynecology
PROC: 0UT90ZZ Resection of Uterus, Open Approach (ICD-10-PCS; CPT 58552; principal; 2020-09-21 09:10)
DX: N72 Inflammatory disease of cervix uteri (principal); N88.8 Other specified noninflammatory disorders of cervix uteri; N80.2 Endometriosis of fallopian tube; N83.8 Other noninflammatory disorders of ovary, fallopian tube and broad ligament; D50.0 Iron deficiency anemia secondary to blood loss (chronic); Z87.891 Personal history of nicotine dependence; Z20.822 Contact with and (suspected) exposure to COVID-19
CPT/HCPCS: 00944; 58552; 36415; 82565; 82962; 83735; 84703; 85027; 85610; 85730; 86850; 86900; 86901; 86920; 87426; 88307; C9803; J7120; J2405

== ENCOUNTER → 2023-10-02 | Outpatient (CLI) | payer BC, SELFPAY ==
[2023-10-02 12:01] LABS: Absolute Neutrophil Count 4.2 X10^3/uL (2.0-7.7); Basophil# 0.06 X10^3/uL; Basophil% 0.8 % (0-1); Eosinophil# 0.15 X10^3/uL; Hematocrit 43.7 % (37-47); Hemoglobin 14.5 g/dL (12.0-15.0); Lymphocyte % 34.1 % (19-41); Mean Corp Hgb Conc 33.2 g/dL (32-36); Mean Corpuscular Hgb 28.9 pg (27.0-32.0); Mean Corpuscular Volume 87.1 fL (81-99); Mean Platelet Vol. 12.3 fl (6.2-12.0); Monocyte# 0.53 X10^3/uL; Monocyte% 6.9 % (0-10); NRBC Flagged by Analyzer 0 % (0-5); Neutrophil # 4.21 X10^3/uL (2.7-7.7); Neutrophil % 55.2 % (47-70); Platelet Count 218 K/mm3 (150-450); RBC Distribution Width CV 13.2 % (11.6-14.6); RBC Distribution Width SD 41.7 fl (35.1-43.9); Red Blood Count 5.02 M/mm3 (4.2-5.4); White Blood Count 7.6 K/mm3 (4.4-11.0)
[2023-10-02 13:13] LABS: Hemoglobin A1c 5.5 % (3.8-5.6)
[2023-10-02 13:14] LABS: ALB/GLOB Ratio 1.1 RATIO (0.9-2.4); AST(SGOT) 21 U/L (15-37); Alanine Aminotransfer ALT/SGPT 43 U/L (13-56); Alkaline Phosphatase 61 U/L (45-117); Anion Gap 4 (5-15); BUN 13 mg/dL (7-18); BUN/Creat Ratio 19.2 RATIO (10-20); Calcium,Total 9.3 mg/dL (8.5-10.1); Chloride 106 mmol/L (98-107); Cholesterol 253 mg/dL (200); Creatinine, Serum 0.68 mg/dL (0.55-1.02); EST Glomerular Filtration Rate 101 mL/min (>60); Est Glom Filt Rate - Afr Amer 122 mL/min (>60); Globulin 3.8 g/dL (2.2-4.2); Glucose 98 mg/dL (74-106); High Density Lipoprotein 54 mg/dL; Potassium 4.1 mmol/L (3.5-5.1); Protein, Total 7.8 g/dL (6.4-8.2); Sodium Level 137 mmol/L (136-145); Thyroid Stim Hormone (TSH) 1.27 uIU/mL (0.358-3.74); Triglycerides 182 mg/dL; Very Low Density Lipoprotein 36 mg/dL (5-40)
[2023-10-05 13:07] LABS: ANTINUCLEAR ANTIBODIES DIRECT Negative (Negative); Vitamin D 1,25-Dihydroxy 48.7 pg/mL (24.8-81.5)
== END | disposition home or self-care (01) ==
PROVIDERS: PCP Nurse Practitioner Family; Referring Provider Nurse Practitioner Family; Visit Provider Nurse Practitioner Family
DX: Z00.01 Encounter for general adult medical examination with abnormal findings (principal); L30.9 Dermatitis, unspecified
CPT/HCPCS: 36415; 80053; 80061; 82652; 83036; 84443; 85025; 86038

== ENCOUNTER → 2024-01-04 | Outpatient (CLI) | payer BC, SELFPAY ==
--- NOTE | 2024-01-04 12:22 | RAD_ITS ---
STUDY: X-RAY - LUMBOSACRAL SPINE REASON FOR EXAM: Female, 43 years old. LOW BACK PAIN TECHNIQUE: 7 view(s) of the lumbosacral spine were obtained. COMPARISON: None FINDINGS: Normal lumbar lordosis. Mild levoscoliosis centered at L3. There is normal alignment of the vertebrae. No subluxation on the flexion-extension views to suggest instability. Normal vertebral bodies and endplates. Focal disc space narrowing and osteophyte formation at L5/S1 consistent with degenerative disease. Normal bilateral sacral ala, sacroiliac joints, and visualized sacrum. Normal visualized soft tissue structures. RAD/L/S Spine Comp/w Bending Views IMPRESSION: Mild levoscoliosis with focal degenerative disc disease at L5/S1. MRI may be useful. Electronically Signed: Sampson Townsend MD at 8:49 EDT ,
== END | disposition home or self-care (01) ==
LOC: RAD 12:17
PROVIDERS: PCP Nurse Practitioner Family; Referring Provider Nurse Practitioner Family; Visit Provider Nurse Practitioner Family
DX: M54.50 Low back pain, unspecified (principal)
CPT/HCPCS: 72114

== ENCOUNTER → 2024-01-26 | Outpatient (CLI) | payer BC, SELFPAY ==
[2024-01-31 14:07] LABS: HPV APTIMA, High Risk Negative (Negative)
[2024-02-01 17:29] LABS: HPV Reflexed? YES, CHARGE PATIENT
== END | disposition home or self-care (01) ==
PROVIDERS: PCP Nurse Practitioner Family; Referring Provider Nurse Practitioner Family; Visit Provider Nurse Practitioner Family
DX: Z12.4 Encounter for screening for malignant neoplasm of cervix (principal)
CPT/HCPCS: 87624; 88175; G0145